=== PATIENT | female | born 2000 | race Two or more races ===

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

== ENCOUNTER 2020-06-11 02:32 | Emergency (ER) | payer MEDICAID ==
[2020-06-11] MEDS ORDERED: Phenazopyridine 95 MG Tab PO STA (03:24)
[2020-06-11] MEDS ORDERED: Nitrofurantoin Monohydrate/Macrocrystalline 100 MG Cap PO STA (03:24)
--- NOTE | 2020-06-11 03:33 | EDM.PDOC ---
ED HPI GENERAL MEDICAL PROBLEM - General Chief Complaint: Genitourinary Problem Stated Complaint: UTI SYMPTOMS Time Seen by Provider: 06/11/20 02:56 Source of Information: Reports: Patient History Limitations: Reports: No Limitations - History of Present Illness INITIAL COMMENTS - FREE TEXT/NARRATIVE: Ms. Yancey is a very pleasant 20-year-old woman who now presents the ED stating that she developed burning dysuria, urinary frequency, and nausea on Monday night, 06/09/2020. No recent fever, vomiting, or flank pain. The patient states that she has had similar symptoms many times in the past, due to a UTI. She states that she gets a UTI about every 4 months, most recently about 4 weeks ago, treated with a course of amoxicillin, however, reviewing prior microbiology reports, I see that a urine culture on 05/26/2020 had no growth after 2 days, a urine culture on 12/10/2019 returned as mixed michaelle consistent with contamination, and a urine culture on 11/25/2019 had no growth after 2 days. The patient has not taken any [id number] or home remedies since her symptoms began. Here in the ED, the patient is found to be hemodynamically stable, afebrile, saturating 97% on room air. Other than her recent urinary symptoms and nausea, the patient denies having a recent fever, chills, sore throat, ear pain, nasal or sinus congestion, cough, dyspnea, chest pain, palpitations, vomiting, constipation, diarrhea, abdominal pain, recent weight gain or weight loss, recent bloody bowel movements or black bowel movements, recent joint aches, headaches, or rashes. The patient's PCP is ZHEN Gannon. Vaginal Pain Score (Numeric/FACES): 10 - Related Data Allergies Allergy/AdvReac Type Severity Reaction Status Date / Time No Known Allergies Allergy Verified 06/11/20 02:49 Home Meds: Home Meds Escitalopram [Lexapro] 10 mg PO DAILY 06/11/20 [History] Methimazole [Tapazole] 1 tab PO DAILY 06/11/20 [History] nitrofurantoin macrocrystaL [Macrodantin] 1 tab PO Q12H #10 capsule 06/11/20 [Rx] Past Medical History Psychiatric History: Reports: Anxiety (untreated), Depression (untreated), Suicide Attempt Endocrine/Metabolic History: Reports: Hyperthyroidism - Past Surgical History HEENT Surgical History: Reports: Oral Surgery (wisdom teeth extraction) Social & Family History - Family History Family Medical History: Noncontributory - Tobacco Use Smoking Status *Q: Never Smoker - Caffeine Use Caffeine Use: Reports: Coffee, Soda - Alcohol Use Alcohol Use History: No - Recreational Drug Use Recreational Drug Use: No - Living Situation & Occupation Living situation: Reports: Single, Alone Occupation: Unemployed ED ROS GENERAL - Review of Systems Review Of Systems: Comprehensive ROS is negative, except as noted in HPI. ED EXAM, RENAL/ - Physical Exam Exam: See Below Exam Limited By: No Limitations General Appearance: Alert, WD/WN, No Apparent Distress Eye Exam: Bilateral Eye: EOMI, Normal Inspection Ears: Normal External Exam, Hearing Grossly Normal Nose: Normal Inspection Throat/Mouth: Normal Inspection, Normal Lips, Normal Voice, No Airway Compromise Head: Atraumatic, Normocephalic Neck: Normal Inspection, Full Range of Motion Respiratory/Chest: No Respiratory Distress, Lungs Clear, Normal Breath Sounds, No Accessory Muscle Use Cardiovascular: Normal Peripheral Pulses, Regular Rate, Rhythm, No Edema, No Gallop, No JVD, No Murmur, No Rub GI/Abdominal: Normal Bowel Sounds, Soft, Non-Tender (including suprapubically), No Organomegaly, No Distention, No Abnormal Bruit, No Mass (Female) Exam: Deferred Rectal (Female) Exam: Deferred Back Exam: Normal Inspection, Full Range of Motion, CVA Tenderness (L) (mild), CVA Tenderness (R) (mild) Extremities: Normal Inspection, Normal Range of Motion, No Pedal Edema, Normal Capillary Refill Neurological: Alert, Oriented, Normal Cognition, No Motor/Sensory Deficits Psychiatric: Normal Affect Skin Exam: Warm, Dry, Intact, Normal Color, No Rash Course - Vital Signs Last Recorded V/S: Last Vital Signs Temp 36.2 C 06/11/20 02:42 Pulse 85 06/11/20 02:42 Resp 18 06/11/20 02:42 BP 109/73 06/11/20 02:42 Pulse Ox 97 06/11/20 02:42 - Orders/Labs/Meds Orders: Active Orders 24 hr Category Date Time Status CULTURE URINE [RM] Stat Lab 06/11/20 03:12 Ordered Labs: Laboratory Tests 06/11/20 Range/Units 03:00 Urine Color Vivi H (Yellow) Urine Appearance Cloudy H (Clear) Urine pH 6.0 (5.0-8.0) Ur Specific [place] > or = 1.030 (1.005-1.030) Urine Protein 3+ H (Negative) Urine Glucose (UA) Negative (Negative) Urine Ketones Negative (Negative) Urine Occult Blood 3+ H (Negative) Urine Nitrite Negative (Negative) Urine Bilirubin Negative (Negative) Urine Urobilinogen 0.2 (0.2-1.0) Ur Leukocyte Esterase 1+ H (Negative) Urine RBC >100 H (0-5) /hpf Urine WBC 5-10 H (0-5) /hpf Ur Squamous Epith Cells 5-10 H (0-5) /hpf Urine Bacteria Few (FEW) /hpf Urine Mucus Not seen (FEW) /hpf Meds: Medications Discontinued Medications Generic Name Dose Route Start Last Admin Trade Name Freq PRN Reason Stop Dose Admin Nitrofurantoin Macrocrystals 100 mg 06/11/20 03:24 Macrobid PO 06/11/20 03:25 ONETIME STA Phenazopyridine HCl 95 mg 06/11/20 03:24 Urinary Pain Relief PO 06/11/20 03:25 ONETIME STA - Re-Assessments/Exams Free Text/Narrative Re-Assessment/Exam: 06/11/20 03:25 As above, the patient developed burning dysuria, urinary frequency, and nausea Monday night. No fever or flank pain, although she has some bilateral CVA tenderness on examination. The patient's urinalysis is remarkable for cloudy appearance, 3+ occult blood with >100 RBCs, 1+ leukocyte esterase with 5-10 WBCs, nitrate negative with few bacteria, and 5-10 squamous epithelial cells. Based on the above, the patient appears to have a urinary tract infection. I have ordered a urine culture, and will start the patient on both nitrofurantoin and Pyridium. I will recommend that she stay adequately hydrated, then follow- up with her PCP on Monday morning, 06/15/2020, to check on her urine culture results, to make sure that she is on the correct antibiotic. Departure - Departure Time of Disposition: 03:26 Disposition: Home, Self-Care 01 Condition: Good Clinical Impression: UTI (urinary tract infection) - Discharge Information *PRESCRIPTION DRUG MONITORING PROGRAM REVIEWED*: Not Applicable *COPY OF PRESCRIPTION DRUG MONITORING REPORT IN PATIENT [place]: Not Applicable Prescriptions: nitrofurantoin macrocrystaL [Macrodantin] 1 tab PO Q12H #10 capsule Instructions: Urinary Tract Infection, Adult, [id number] Referrals: Rosa Maria Merritt PA-C [Primary Care Provider] - Forms: ED Department Discharge Additional Instructions: You were seen in the emergency room after developing painful urination, the need to urinate frequently, and nausea on Monday night. Work-up in the ER included a urinalysis, which is consistent with a urinary tract infection. A sample of your urine has been sent for culture. You have been started on the antibiotic nitrofurantoin, and a prescription for nitrofurantoin has [facility], located in the [facility] across the [address] from the hospital. Take 1 tablet of nitrofurantoin every 12 hours, starting this evening, , 06/11/2020, as prescribed. Finish the entire prescription unless told otherwise by your provider. In addition to nitrofurantoin, you have been started on the pain reliever Pyridium. Pyridium is available [id number] as Azo. You may take a total of 6 doses; either 3 doses a day for 2 days, or 2 doses a day for 3 days. Azo will turn your urine orange - this is normal. Stay adequately hydrated. It does not really matter what type of fluid you drink. Follow-up with your PCP, ZHEN Gannon, morning, 06/15/2020, to check on your urine culture results, to make sure that you are on the correct antibiotic. If any other problems, please do not hesitate to return to the ER. Sepsis Event Note (ED) - Evaluation Sepsis Screening Result: No Definite Risk - Focused Exam Vital Signs: Vital Signs Temp Pulse Resp BP Pulse Ox 06/11/20 02:42 36.2 C 85 18 109/73 97 - My Orders Last 24 Hours: My Active Orders 06/11/20 03:12 CULTURE URINE [RM] Stat - Assessment/Plan Last 24 Hours: My Active Orders 06/11/20 03:12 CULTURE URINE [RM] Stat
[2020-06-11] MEDS ORDERED: Nitrofurantoin Monohydrate/Macrocrystalline 100 MG Cap ONE (03:41)
[2020-06-11] MEDS ORDERED: Phenazopyridine 95 MG Tab ONE (03:42)
== END 2020-06-11 03:55 | disposition home or self-care (01) ==
LOC: JD.ED 02:32
DX: N39.0 Urinary tract infection, site not specified (principal); F41.9 Anxiety disorder, unspecified; F32.9 Major depressive disorder, single episode, unspecified; Z79.899 Other long term (current) drug therapy
CPT/HCPCS: 81001; 87086; 87088; 87186; 99283; A9270

== ENCOUNTER 2022-06-30 20:47 | Emergency (ER) | payer MEDICAID | END 2022-06-30 22:45 | disposition home or self-care (01) | LOC: JD.ED 20:47 | DX: L70.9 Acne, unspecified (principal); Z86.16 Personal history of COVID-19; Z79.899 Other long term (current) drug therapy | CPT/HCPCS: 99282 ==

== ENCOUNTER 2023-06-27 16:13 | Emergency (ER) | payer MEDICAID ==
[2023-06-27 17:35] LABS: BASOPHILS PERCENT AUTO 0.6 % (0.0-1.0); HEMATOCRIT 39.6 % (37.0-47.0); HEMOGLOBIN 13.4 gm/dl (12.0-16.0); IMMATURE GRAN ABSOLUTE AUTO 0.02 K/mm3 (0.00-0.05); IMMATURE GRAN PERCENT AUTO 0.4 % (0.0-0.4); LYMPHOCYTES ABSOLUTE AUTO 1.4 K/mm3 (1.0-4.8); LYMPHOCYTES PERCENT AUTO 26.8 % (24.0-44.0); MEAN CORPUSCULAR HEMOGLOBIN 28.6 pg (28.0-32.0); MEAN CORPUSCULAR HGB CONC 33.8 g/dl (32.0-36.0); MEAN CORPUSCULAR VOLUME 84.4 fl (83.0-99.0); MEAN PLATELET VOLUME 10.3 fl (9.4-12.3); MONOCYTES ABSOLUTE AUTO 0.4 K/mm3 (0.0-0.8); MONOCYTES PERCENT AUTO 7.7 % (0.0-8.0); NEUTROPHILS ABSOLUTE AUTO 3.4 K/mm3 (1.8-7.7); NEUTROPHILS PERCENT AUTO 64.5 % (41.0-71.0); PLATELET COUNT,PLT 247 K/mm3 (150-400); RED BLOOD CELL COUNT 4.69 M/mm3 (4.10-5.30); WHITE BLOOD CELL COUNT,WBC 5.22 K/mm3 (3.9-11.3)
[2023-06-27 17:37] LABS: APPEARANCE,URINE CLEAR (Clear); BILIRUBIN,URINE NEGATIVE (Negative); COLOR,URINE YELLOW (Yellow); GLUCOSE,URINE NEGATIVE (Negative); KETONES,URINE NEGATIVE (Negative); LEUKOCYTE ESTERASE,URINE NEGATIVE (Negative); NITRITE,URINE NEGATIVE (Negative); OCCULT BLOOD,URINE 2+ (Negative); PROTEIN,URINE NEGATIVE (Negative); UROBILINOGEN,URINE 0.2 (0.2-1.0)
[2023-06-27 17:51] LABS: BACTERIA,URINE FEW /hpf (FEW); MUCUS,URINE FEW /hpf (FEW); SQUAMOUS EPITHELIAL CELLS,UR 0-5 /hpf (0-5); WBC,URINE 0-5 /hpf (0-5)
[2023-06-27 18:05] LABS: ALBUMIN 3.9 g/dl (3.4-5.0); ANION GAP 12.6 (5-15); BILIRUBIN TOTAL 0.2 mg/dL (0.2-1.0); CALCIUM 8.9 mg/dL (8.5-10.1); CREATININE 0.6 mg/dL (0.55-1.02); EST CRCL DRUG DOSING (CG) 110.04 mL/min; POTASSIUM,K 3.6 mEq/L (3.5-5.1)
== END 2023-06-27 20:34 | disposition home or self-care (01) ==
LOC: JD.ED 16:13
DX: O03.4 Incomplete spontaneous abortion without complication (principal); Z3A.01 Less than 8 weeks gestation of pregnancy; Z88.1 Allergy status to other antibiotic agents; Z91.041 Radiographic dye allergy status; Z88.8 Allergy status to other drugs, medicaments and biological substances; Z86.16 Personal history of COVID-19; Z67.91 Unspecified blood type, Rh negative
CPT/HCPCS: 36415; 76817; 76817-26; 80053; 81001; 84702; 85025; 86850; 86900; 86901; 99283; 99284; J2790